=== PATIENT | male | born 1945 | race African-American/Black ===

== ENCOUNTER 2016-12-27 15:44 | Emergency (ER) | payer MEDICARE ==
[~2016-12-27] VITALS: Ht 180.3 cm; Wt 85.0 kg
[2016-12-27] MEDS ORDERED: KETOROLAC 60MG/2ML VIAL IM ONE (19:30)
[2016-12-27 19:52] VITALS: BP 158/107
== END 2016-12-27 20:25 | disposition home or self-care (01) ==
LOC: ER 18:00
DX: M25.562 Pain in left knee (principal); M54.5 Low back pain; I10 Essential (primary) hypertension; W01.0XXA Fall on same level from slipping, tripping and stumbling without subsequent striking against object, initial encounter; Y93.89 Activity, other specified; Y92.512 Supermarket, store or market as the place of occurrence of the external cause
CPT/HCPCS: 96372; 99283; J1885